=== PATIENT | male | born 1970 | race Caucasian/White ===

== ENCOUNTER 2016-10-08 20:55 | Emergency (ER) | payer BC, MEDICARE ==
[2016-10-08 21:41] VITALS: BP 118/73
--- NOTE | 2016-10-08 21:53 | UC ---
Lower Extremity/Ankle HPI - HPI Summary HPI Summary: rolled right foot tonight, heard and felt a "pop" along with severe pain. Multiple fractures of multiple bones in past. 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 - History of Current Complaint Chief Complaint: UCLowerExtremity Stated Complaint: RT FOOT INJURY Time Seen by Provider: 10/08/16 21:41 Hx Obtained From: Patient Onset/Duration: Sudden Onset, Lasting Hours - 6 Severity Initially: Severe Severity Currently: Moderate Aggravating Factor(s): Standing, Ambulation Alleviating Factor(s): Rest, Elevation, Ice Able to Bear Weight: No - Risk Factors Gout Risk Factors: Age Over 40, Male DVT Risk Factors: Negative Septic Arthritis Risk Factor: Negative - Allergies/Home Medications Allergies/Adverse Reactions: Allergies Allergy/AdvReac Type Severity Reaction Status Date / Time Acetaminophen [From [place]] Allergy yellow dye Verified 06/19/15 11:18 in [place], hives Hydrocodone [From [place]] Allergy yellow dye Verified 06/19/15 11:18 in [place], hives Meperidine [From Demerol HCl] Allergy anxiety, Verified 06/19/15 11:18 agitation PMH/Surg Hx/FS Hx/Imm Hx Endocrine History Of: Reports: Thyroid Disease - ON MEDS Denies: Diabetes Cardiovascular History Of: Denies: Hypertension, Pacemaker/ICD Psychological History Of: Reports: Anxiety - R/T A MED; TAKES ZOLOFY @ BEDTIME - Surgical History Surgical History: Yes Surgery Procedure, Year, and Place: 2011 RT KNEE SCOPE [facility] [place] [id number] RT WRIST X5(METAL WAS ALL REMOVED LAST SURGERY),[facility] [place] [id number] ULNAR NERVE TRANSPOSITION LEFT, LT ARM MULTIPLE FOR NERVES X4C 2014 U[place]ILICA HERNIA REPAIR [facility] [place] rightshoulder 2104 X2 METAL PLATE PUT IN AND REPLACED IN [place] - Family History Known Family History: Positive: Hypertension - Social History Occupation: Employed Full-time Lives: With Family Alcohol Use: None Alcohol Amount: SOBER 10 YEARS Substance Use Type: None Smoking Status (MU): Light Every Day Tobacco Smoker Type: Cigarettes Amount Used/How Often: 1/2 - 1 PACK A DAY 36 YRS Length of Time of Smoking/Using Tobacco: started age 9 Have You Smoked in the Last Year: Yes Household Exposure Type: Cigarettes Review of Systems Constitutional: Negative Skin: Negative Eyes: Negative ENT: Negative Respiratory: Negative Cardiovascular: Negative Gastrointestinal: Negative Genitourinary: Negative Motor: Negative Neurovascular: Negative Musculoskeletal: Arthralgia, Decreased ROM, Edema, Myalgia Neurological: Negative Psychological: Negative All Other Systems Reviewed And Are Negative: Yes Physical Exam Triage Information Reviewed: Yes Appearance: Well-Appearing, No Pain Distress, Well-Nourished, Thin Vital Signs: Initial Vital Signs Temp 98.2 F 10/08/16 21:36 Pulse 81 10/08/16 21:36 Resp 16 10/08/16 21:36 BP 118/73 10/08/16 21:36 Pulse Ox 100 10/08/16 21:36 Vital Signs Reviewed: Yes Eye Exam: Normal Neck exam: Normal Respiratory Exam: Normal Cardiovascular Exam: Normal Musculoskeletal Exam: Other - right ankle with minimal swelling, tenderness over lateral malleolus. Bruising, swelling, and extreme tenderness over base 5th MT Neurological Exam: Normal Psychological Exam: Normal Skin Exam: Normal Diagnostics - Laboratory Diagnostic Studies Completed/Ordered: base 5th MT fractured Lower Extremity Course/Dx - Differential Dx/Diagnosis Differential Diagnosis/HQI/PQRI: Fracture (Closed), Sprain Provider Diagnoses: foot fracture Discharge - Discharge Plan Condition: Stable Disposition: HOME Patient Education Materials: Foot Fracture in Adults (ED) Referrals: Reese Quiroga MD [Medical Doctor] - Sridhar Mcnally MD [Primary Care Provider] - Additional Instructions: Call Dr. Quiroga on Tuesday and tell him you broke your "fifth metatarsal". Stay off the foot, no weight-bearing. Use the crutches and the boot. Motrin or Tylenol or your Vicodin for pain. Ice and elevation this weekend
--- NOTE | 2016-10-08 22:15 | RAD ---
INDICATION: Right ankle injury COMPARISON: Right foot October 08, 2016 TECHNIQUE: AP, lateral, and oblique views were obtained. FINDINGS: There are no ankle fractures. Ankle mortise is intact. There is no significant soft tissue swelling. There is a transverse fracture involving the base of the fifth metatarsal with intra-articular extension.. IMPRESSION: NO EVIDENCE OF ANKLE FRACTURE. FIFTH METATARSAL FRACTURE ALSO DESCRIBED IN A SEPARATE REPORT.
--- NOTE | 2016-10-08 22:15 | RAD ---
INDICATION: Traumatic fracture fifth metatarsal COMPARISON: Right ankle same date TECHNIQUE: AP, lateral, and oblique views were obtained. FINDINGS: There is a fracture involving the base of the fifth metatarsal. This is a comminuted fracture with intra-articular extension. There is no displacement. No other fractures are evident. There is soft tissue swelling near the fracture site. IMPRESSION: INTRA-ARTICULAR FRACTURE BASE OF FIFTH METATARSAL
== END 2016-10-08 22:25 | disposition home or self-care (01) ==
LOC: UCCORT 20:55
DX: S92.354A Nondisplaced fracture of fifth metatarsal bone, right foot, initial encounter for closed fracture (principal); X50.1XXA Overexertion from prolonged static or awkward postures, initial encounter; Y93.9 Activity, unspecified; Y92.9 Unspecified place or not applicable; Z88.6 Allergy status to analgesic agent; Z88.5 Allergy status to narcotic agent; F17.210 Nicotine dependence, cigarettes, uncomplicated
CPT/HCPCS: 99213; G0463

== ENCOUNTER → 2016-10-25 06:15 | Day surgery (SDC) | payer BC, MEDICARE ==
[~2016-10-25 06:15] MED LIST: Buffered Lidocaine 1% SYR 3ML* 3 ML/SYR SYRINGE INTRADERM ONE; Bupivacaine 0.25% EPI 200,000* 30 ML SDV ONE; Dexamethasone IV* 4 MG/ML 1 ML (4 MG) IV SLOW PU ONE; Dexamethasone IV* 4 MG/ML 1 ML (4 MG) ONE; DiMENhydriNATE IV* 50 MG/ML VIAL IV PUSH PRN; Famotidine IV* 10 MG/ML 2 ML (20 mg) IV ONE; Famotidine IV* 10 MG/ML 2 ML (20 mg) ONE; HYDROmorphone INJ* 1 MG/ML CARPUJECT SYRINGE IV PRN; Ketorolac INJ* 30 MG/ML 1 ML VIAL ONE; Lidocaine 2% PF * 5 ML VIAL ONE; Midazolam* 1 MG/ML 2 ML VIAL (2 MG) ONE; Ondansetron INJ* 2 MG/ML VIAL IV PRN; Ondansetron INJ* 2 MG/ML VIAL ONE; PROCHLORPERAZINE INJ 5 MG/ML 2 ML VIAL IV PRN; Propofol* 10 MG/ML 20 ML BTL IV PUSH ONE; Scopolamine 1.5 mg* PATCH TRANSDERM PRN; Scopolamine PATCH Remove* 1 NOTE MISC PATCH OFF ONE; ceFAZolin 2 GM PREMIX (*) 2 GM/50 ML BAG IVPB ONE; fentaNYL* 50 MCG/ML 2 ML VIAL (100 MCG VIAL) IV PRN; fentaNYL* 50 MCG/ML 2 ML VIAL (100 MCG VIAL) ONE; oxyCODONE/Acetamin 5/325 MG* TAB ONE
[2016-10-25 10:09] VITALS: BP 117/67
--- NOTE | 2016-10-25 21:31 | OP ---
DATE OF OPERATION: 10/25/16 [facility] DATE OF : 66 SURGEON: Reese Quiroga MD HAND ETCHER: Love Voss RPA ANESTHESIOLOGIST: Javier Smith MD ANESTHESIA: General. PRE-OP DIAGNOSIS: Painful hardware, right shoulder. POST-OP DIAGNOSIS: Painful hardware, right shoulder. OPERATIVE PROCEDURE: 1. Removal of hardware, right shoulder. 2. Repair of coracoacromial graft, right shoulder. INDICATIONS: Mr. 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 He had undergone a reconstruction of his coracoclavicular ligament with placement of a hook plate and this had worked well. He had been seen at 1-year postop, had no pain, and was doing all activities. Unfortunately, as the months passed from then, he started having more and more pain about the right shoulder. An x-ray could be seen that the hook plate had worn into his acromion a little bit and he had some signs and symptoms of impingement. I discussed with him that removing the plate should work well to decrease that pain and hopefully let the shoulder feel better. I was a little concerned as I had used a donor tendon for reconstructing his coracoclavicular ligament and after the hook plate had been placed, had placed the graft over the plate; therefore, I would have to cut the top side of that graft, but I discussed with him that if the graft had not resorbed and that was still there, that I would then repair that. Other risks of surgery such as infection and refracture of the distal clavicle were discussed and he had wished to proceed. ESTIMATED BLOOD LOSS: Less than 10 cc. COMPLICATIONS: None. DESCRIPTION OF PROCEDURE: The patient was brought to the OR and LMA was placed. He was then sat up in a beach-chair position and the left elbow was nicely padded. Right shoulder area was prepped and then draped. Skin over the incisional area was infiltrated using 0.25% Marcaine with epinephrine. A total of approximately 30 cc would be used through the case. Incision was made centered over the old scar as this was in a nice position and the plate could be easily palpable underneath. With coming down the skin and some of the subcutaneous scar, plate was immediately palpable, but densely covered by scar. Tendon was also clearly identified as coming over the top side and this was sharply incised. Sharp dissection was used to peel periosteum and scar off the plate until I could get an access to the screws and then one by one screws were removed. Knife and [place] were used to cut around the plate to free this up some until the plate was finally able to be removed. Plate was then easily removed as well. [place] was used to resect some of the fibrous tissue, which had come up within the screw holes and curette was used to scrape within the screw holes as well. Wound was irrigated using a bulb syringe. #2 Ethibond was then used to repair the top side of the donor graft directly over the clavicle. Periosteum and scar were repaired together over the clavicle as well. Subcutaneous tissues were repaired using 2-0 Vicryl and skin was closed using a running PDS. Sterile dressing and a sling were applied in the OR. The patient had the LMA removed in the OR and was stable on transfer to the recovery room. DISPOSITION/DISCHARGE SUMMARY: Mr. Coronel is a 46-year-old male who just underwent removal of hardware from his right shoulder. He tolerated the procedure well with no complications. He is currently being woken up and then will be transferred here to the recovery room. Once he can tolerate p.o., has his pain well controlled, and can void, he will be discharged to home. Prescription for [place] was e-scribed in and we will make sure he has enough, as he also has a foot fracture at this point in time. He has instructions not to lift more than 5 pounds and to take it easy. I would like to see him in the office in approximately 10 days, remove his running stitch, and make sure he is doing well. We will continue him with an activity restriction for about 3 weeks and to make sure that a fall or other light trauma does not cause a fracture through the clavicle. After that, we will essentially release him for all activities in regards to the shoulder and if the foot is healing well, we will do the same for that as well. [id number]/[facility] #: [id number] [facility]OSPITALRenee
== END | disposition home or self-care (01) ==
LOC: OR 06:15
PROVIDERS: ATTEND Orthopaedic Surgery
DX: T84.84XA Pain due to internal orthopedic prosthetic devices, implants and grafts, initial encounter (principal); Y83.1 Surgical operation with implant of artificial internal device as the cause of abnormal reaction of the patient, or of later complication, without mention of misadventure at the time of the procedure; M25.511 Pain in right shoulder; F17.210 Nicotine dependence, cigarettes, uncomplicated
CPT/HCPCS: 88300; A9270-GY; J0690; J1100; J1885; J2250; J2405; J2704; J3010

== ENCOUNTER → 2019-07-16 06:51 | Day surgery (SDC) | payer BC, MEDICARE ==
[~2019-07-16 06:51] MED LIST changes: +Acetaminophen TAB* 325 MG PO PRN; -Buffered Lidocaine 1% SYR 3ML* 3 ML/SYR SYRINGE INTRADERM ONE; +Buffered Lidocaine 1% SYRIN* 1 ML/SYRINGE INTRADERM ONE; -Bupivacaine 0.25% EPI 200,000* 30 ML SDV ONE; +Bupivacaine 0.25% SDV PF* 10 ML VIAL INJ ONE; -Dexamethasone IV* 4 MG/ML 1 ML (4 MG) IV SLOW PU ONE; -DiMENhydriNATE IV* 50 MG/ML VIAL IV PUSH PRN; +Gabapentin CAP(*) 400 MG PO ONE; +Glycopyrrolate IV* 0.2 MG/ML 1 ML VIAL ONE; -HYDROmorphone INJ* 1 MG/ML CARPUJECT SYRINGE IV PRN; +HYDROmorphone INJ1* 1 MG/ML SYRINGE IV PRN; +HYDROmorphone INJ1* 1 MG/ML SYRINGE ONE; -Ketorolac INJ* 30 MG/ML 1 ML VIAL ONE; +Lidocaine 1% w EPI 1:200,000* SDV 30 ML VIAL ONE; -Lidocaine 2% PF * 5 ML VIAL ONE; +Lidocaine 2% PF* 10 ML AMP ONE; +Naloxone* 0.4 MG/ML 1 ML VIAL IV PRN; +Neostigmine Methylsulfate* 3 MG/3 ML SYRINGE ONE; -Propofol* 10 MG/ML 20 ML BTL IV PUSH ONE; +Propofol* 10 MG/ML 20 ML BTL ONE; +ROPIVACAINE 5 MG/ML 30 ML BTL (0.5%) ONE; +Rocuronium* 10 MG/ML VIAL ONE; -Scopolamine 1.5 mg* PATCH TRANSDERM PRN; -Scopolamine PATCH Remove* 1 NOTE MISC PATCH OFF ONE; -ceFAZolin 2 GM PREMIX (*) 2 GM/50 ML BAG IVPB ONE; +ceFAZolin 2 GM in NS PREMIX(*) 2 GM/100 ML BAG IVPB ONE; +diPHENhydraMINE IV* 50 MG/ML 1 ml VIAL (BENADRYL) IV PRN; -fentaNYL* 50 MCG/ML 2 ML VIAL (100 MCG VIAL) IV PRN; -fentaNYL* 50 MCG/ML 2 ML VIAL (100 MCG VIAL) ONE; +fentaNYL* 50 MCG/ML 5 ML VIAL (250 MCG VIAL) ONE; +oxyCODONE TAB* 5 MG TAB PO PRN; -oxyCODONE/Acetamin 5/325 MG* TAB ONE
[2019-07-16] MEDS: Lactated Ringers 1000 ML Bag* 1,000 ML IV SCH ×2 (07:48→13:24)
[2019-07-16 13:29] VITALS: BP 130/85
--- NOTE | 2019-07-16 19:53 | OP ---
DATE OF OPERATION: 07/16/19 [facility] DATE OF : 66 SURGEON: Reese Quiroga MD EVALUATION ENGINEER: Ilene Damon RPA ANESTHESIA: Regional and general. PRE-OP DIAGNOSIS: Enchondroma, left proximal humerus. POST-OP DIAGNOSIS: Enchondroma, left proximal humerus. OPERATIVE PROCEDURE: Marginal excision of left proximal humerus enchondroma. ESTIMATED BLOOD LOSS: Approximately 25 cc. COMPLICATIONS: None. FINDINGS: No worrisome tissue with scraping the proximal humerus. INDICATIONS: Mr. Coronel is a 49-year-old male, who has been having progressive troubles with more and more left shoulder pain. He had good motion , but would have night pain as well as just a general achiness of the shoulder. He had x-rays taken, which found a growing enchondroma. With comparison to previous x-rays, these showed progression of that enchondroma. He had an MRI, which confirmed that there was different tissue. A cold bone scan as well as a biopsy was performed, as I discussed with him that the night pain had made me very worried this might be a chondrosarcoma. Everything, however, pointed to a benign enchondroma. I discussed with him that a marginal excision therefore should work well to decrease his pain and let this feel better. We also would send this for pathology to make sure that there was not something else going on. Because there is always a possibility that it could still be something malignant, I discussed with him that we will be going through the anterior and middle thirds of his deltoid so that we would not contaminate additional tissue planes in case this did outer diameter grinder tool to be a sarcoma. Other risks of surgery such as infection, scar formation, stiffness, and continued pain were also discussed and he had wished to proceed. DESCRIPTION OF PROCEDURE: The patient had a scalene block placed in the holding area and was brought back to the OR. General endotracheal anesthesia was established. He was then sat up in a beach chair position. He was lean and sat nicely in the middle of the table, so an armboard was not needed to keep his right arm nicely seated on his body. Elbow was nice and free. Left shoulder area was prepped and then draped. Skin over the incisional area was infiltrated using 10 cc of 0.25% Marcaine mixed with 1% lidocaine with epinephrine. Incision was made where I could feel the raphe between the anterior and middle thirds of his deltoid. Incision was carried down through the skin and subcutaneous tissues. Small bleeders encountered were ligated using electrocautery. I could see a little bit of the white stripe in that area and gentle dissection was carried down through that area. Between using the [place] and then the Tam to bluntly split tissue, I was able to slowly come down until I came down to the fascia of the deltoid. This was then sharply incised and deltoid bursa was present underneath. Again, using the Tam, this was swept both medially and laterally and nice exposure of that anterolateral edge of the humerus was obtained. I had marked the skin at 2 cm below the level of the acromion and then 4 cm below that so I had a feel for where the enchondroma would be inside the proximal humerus. A 1.6-mm drill was used to score the bone and then osteotomes were used to connect the dots so that I would be able to make a window into the bone. Drill was used to make two holes along the side and then with the curved osteotomes coming under, I was able to crack his bone coming upwards. I had a good tissue hinge on the backside of my window. Opening upwards, it just looked as if I had cancellous bone on the undrside of the window, and this corresponded well, as he did have cancellous bone by the MRI right behind where I was planning the window. Coming inwards a little bit further using the curette, I was able to curette out what initially looked more like marrow contents, but there was definitely a soft mushiness to it. A small rongeur was also used to take out a lot of that material. Eventually, large angled curette was used to scrape along the bone inferior, medial, superior and posterior so that I felt I had gotten all of the enchondroma. Wound was irrigated using a bulb syringe and then packed using the morcellized bone graft. Holes were drilled on each side of the window and an Ethibond suture was passed through and used to tie this back together. I needed to tamp down the window and heard that crunching of the bone graft and the window had held in place even without the stitch. Stitch was then passed to make sure everything stayed in place. With taking the [place] out, it could be seen how the deltoid simply closed directly over this and sutures were not placed into the deltoid. Wound was again irrigated using a bulb syringe and the subcutaneous tissues were closed using 2-0 nylon sutures. Skin was closed using a running Monocryl. Sterile dressing was applied in the OR. The patient was then awakened in the OR and was stable on transfer to the recovery room. DISPOSITION/DISCHARGE SUMMARY: Mr. Coronel is a 49-year-old male who underwent excision of an enchondroma of his left proximal humerus. He tolerated the procedure well. There were no complications. He was currently being woken up in the OR. He will then be transferred over here to the recovery room and once he can tolerate p.o., has his pain well controlled and can void, he will be discharged home. Script for oxycodone will be e-scribed in. He has instructions to keep his dressing clean, dry, and intact for the next 3 days, but after that may take his dressing down, cover sutures with bandage, may shower, wash and get it wet, but should not soak it. He has no range of motion restrictions. If there are any problems, he has instructions to give the office a call. Otherwise, I would like to see him back in the office at approximately 10 days to remove his sutures and make sure he is doing well. If there are any problems or if anything odd should occur, there are instructions to give the office a call. [id number]/[facility] #: [id number] LIZETH
== END | disposition home or self-care (01) ==
LOC: OR 06:51
PROVIDERS: ATTEND Orthopaedic Surgery
DX: D16.02 Benign neoplasm of scapula and long bones of left upper limb (principal); G89.18 Other acute postprocedural pain; E78.5 Hyperlipidemia, unspecified; E03.9 Hypothyroidism, unspecified
CPT/HCPCS: 88305; C1776; J0690; J1100; J1170; J2001; J2250; J2405; J2704; J2710; J2795; J3010; J3490